=== PATIENT | female | born 1985 | race Hispanic/Latino ===

== ENCOUNTER 2024-03-09 13:57 | Emergency (ER) | payer OTHER, SELFPAY ==
[2024-03-09] MEDS ORDERED: NA CHLORIDE 0.9% 1,000 ML ONE (15:14)
[2024-03-09] MEDS ORDERED: MORPHINE 2 MG/ML SYR ONE (15:14)
[2024-03-09 15:20] LABS: Absolute Eosinophils 0.2 K/uL (0-0.5); Absolute Lymphocytes (CBC) 1.6 K/uL (0.7-4.9); Absolute Monocytes 0.5 K/uL (0.1-1.3); Absolute Neutrophil 2.5 K/uL (1.8-8.0); Basophils % 0.5 % (0-1.3); Eosinophils % 3.3 % (0-4.4); Lymphocytes % 33.9 % (15.3-44.8); MCHC 32.5 g/dL (32.0-36.0); MCV 79.9 fL (80-100); MPV 7.5 fL (7.6-11.3); Monocytes % 9.6 % (3.3-12.3); Neutrophils % 52.7 % (41.7-73.7); Nucleated Red Blood Cells % 0.3 % (0-0); Platelets 325 thou/uL (152-406); RBC Red Blood Cell Count 4.63 M/uL (3.86-4.86); Red Cell Distribution Width 14.4 % (12.1-15.2)
[2024-03-09 15:25] LABS: PT Prothrombin Time 11.1 SECONDS (9.4-12.5); PTT, Activated Partial Thromb 34.7 SECONDS (24.3-36.9); Protime INR 0.99
[2024-03-09 15:53] LABS: Anion Gap 6.1 mEq/L (5.0-15.0); Potassium 4.1 mEq/L (3.5-5.1)
[2024-03-09] MEDS ORDERED: dexAMETHasone 10 MG/ML VIAL ONE (16:10)
--- NOTE | 2024-03-09 16:22 | RAD REPORT ---
EXAM: CT Head Brain Wo Cont HISTORY: headache, dizziness, right facial palsy COMPARISON: 10/20/2013 TECHNIQUE: Multiple contiguous axial images were obtained for a CT of the brain without contrast. Sag ittal and coronal reformats were performed. One or more of the following dose reduction techniques were used: Automated exposure control, adjus tment of the mA and kV according to patient size, and iterative reconstruction. Unless otherwise specified, incidental findings do not require dedicated imaging follow-up. FINDINGS: No evidence of hydrocephalus, intracranial hemorrhage, or extra-axial fluid collection. The brain is normal in morphology. The calvarium is intact. The visualized paranasal sinuses and mastoid air cells are essentially clear . IMPRESSION: No evidence of acute intracranial abnormality.
--- NOTE | 2024-03-09 16:36 | RAD REPORT ---
EXAMINATION: CTA HEAD CLINICAL INDICATION: Female, 38 years old. Dizziness;Wilkins's Palsy TECHNIQUE: Axial CT images were obtained through the head after intravenous contrast utilizing angiog raphic protocol with 3D post-processing (maximum intensity projection images, volume rendered images and/or shaded surface rendered images). One or more of the following dose reduction technique s were used: Automated exposure control, adjustment of the mA and/or kV according to patient size, and/or iterative reconstruction. Unless otherwise specified, incidental findings do not require dedic ated imaging follow-up. COMPARISON: No prior exam. FINDINGS: ICA: The petrous, cavernous, and supraclinoid segments of the bilateral internal carotid arteries are normal. CLAUDETTE: Anterior cerebral arteries are normal bilaterally. The anterior communicating artery is patent. MCA: Middle cerebral arteries are normal bilaterally. SQUEEGEE OPERATOR: Posterior cerebral arteries are normal bilaterally. Vertebrobasilar: The vertebral arteries are patent. The basilar artery is normal in appearance. 3D images confirm these findings. IMPRESSION: No evidence of large vessel occlusion or hemodynamically significant stenosis.
--- NOTE | 2024-03-09 16:38 | RAD REPORT ---
EXAMINATION: CT Neck Angio CLINICAL INDICATION: Female, 38 years old. [facility] right facial palsy Bed: TECHNIQUE: Axial CT images were obtained from the aortic arch to the skull base after intravenous con trast utilizing angiographic protocol. Multiplanar reformats, as well as 3D post-processing (maximum intensity projection images, volume rendered images and/or shaded surface rendered images) w ere generated and reviewed. One or more of the following dose reduction techniques were used: Automated exposure control, adjustment of the mA and/or kV according to patient size, and/or iterativ e reconstruction. Unless otherwise specified, incidental findings do not require dedicated imaging follow-up. COMPARISON: No prior exam. FINDINGS: AORTA: The imaged aortic arch is normal. Variant anatomy of the arch with common origin of the left C CA and innominate artery. CCA: No artifact The common carotid arteries are patent and normal in caliber. ICA/ECA: Bilateral internal and external carotid arteries are patent. There is no significant interna l carotid artery stenosis. VERTEBRAL: The cervical vertebral arteries are patent to the skull base. Vertebral arteries are codom inant. SOFT TISSUE: No significant neck soft tissue abnormalities. The visualized lung apices are clear. 3D images confirm these findings. IMPRESSION: No significant flow abnormality of the neck vessels is identified. NASCET criteria used to quantify ICA stenosis, with the following grading scheme: Mild 0-49% stenosis Moderate 50-69% stenosis Severe 70-99% stenosis Reference: [place] Symptomatic Carotid Endarterectomy Trial Collaborators; Juan MONDRAGON, Freda HAWTHORNE, Katelyn RB, et al. Beneficial effect of carotid endarterectomy in symptomatic patients with high-grade carotid stenosis. N Engl J Med. 1990Nov 06;325(7):445-53.
[2024-03-09] MEDS ORDERED: KETOROLAC 30 MG/ML INJ ONE (17:36)
--- NOTE | 2024-03-09 17:57 | EDPHYS ---
Physician Documentation [facility] Name: Chikis Baker Age: 38 yrs Sex: Female : 1985 Arrival Date: 03/09/2024 Time: 13:57 Bed 23 Private MD: ED Physician Jonny Garcia HPI: 03/09 14:51 This 38 yrs old Female presents to ER via Ambulatory with complaints of rn Headache. 14:51 The patient complains of pain to the forehead. Onset: The symptoms/episode rn began/occurred 5 day(s) ago. Severity of symptoms: At its worst the pain was moderate, in the emergency department the pain is unchanged. The patient has not experienced similar symptoms in the past. Patient reports 5 days of headache, associated with intermittent dizziness and feeling lightheaded. Last night noticed right side of face was not moving with normal strength, involves upper and lower face. No trauma. No family history of brain tumor or aneurysm. No focal neurological deficits otherwise. Denies fever or chills.. 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 - Infectious Disease History:: Denies. - Social history:: Smoking status: Patient denies any tobacco usage or history of. - Family history:: not pertinent. - Hospitalizations: : No recent hospitalization is reported. ROS: 14:51 Constitutional: Negative for fever, chills, and weight loss, Eyes: Negative for injury, rn pain, redness, and discharge, Neck: Negative for injury, pain, and swelling, Cardiovascular: Negative for chest pain, palpitations, and edema, Respiratory: Negative for shortness of breath, cough, wheezing, and pleuritic chest pain, Abdomen/GI: Negative for abdominal pain, nausea, vomiting, diarrhea, and constipation, Back: Negative for injury and pain, MS/Extremity: Negative for injury and deformity, Skin: Negative for injury, rash, and discoloration, Neuro: Positive for headache and dizziness Exam: 14:51 Constitutional: This is a well developed, well nourished patient who is awake, alert, rn and in no acute distress. Head/Face: Normocephalic, atraumatic. Right upper and lower facial palsy Eyes: Pupils equal round and reactive to light, extra-ocular motions intact. Neck: No meningismus. Cardiovascular: Regular rate and rhythm. No pulse deficits. Respiratory: No increased work of breathing, no retractions or nasal flaring. Abdomen/GI: Soft, non-tender MS/ Extremity: Pulses equal, no cyanosis. Neurovascular intact. Full, normal range of motion. Equal circumference. Neuro: Awake and alert, GCS 15, oriented to person, place, time, and situation. Right upper and lower facial palsy. Motor strength 5/5 in all extremities. Sensory grossly intact. Cerebellar exam normal. Normal gait. Vital Signs: 14:39 BP 126 / 84; Pulse 90; Resp 16; Temp 98.5(O); Pulse Ox 97% ; Weight 83.91 kg; Height 5 cm10 ft. 2 in. ; Pain 10/10; 15:19 BP 117 / 70; Pulse 72; Resp 16; Pulse Ox 100% on R/A; jb4 16:32 BP 101 / 65; Pulse 66; Resp 16; Pulse Ox 100% on R/A; jb4 14:39 Body Mass Index 33.84 (83.91 kg, 157.48 cm) cm10 14:39 Pain Scale: Adult cm10 [place] Coma Score: 17:55 Eye Response: spontaneous(4). Motor Response: obeys commands(6). Verbal Response: rn oriented(5). Total: 15. MDM: 14:10 Medical Screening Exam initiated rn 17:55 Differential diagnosis: intracerebral hemorrhage, tension headache, trigeminal rn neuralgia, vasomotor headache, Wilkins's palsy, Leila Oliveira syndrome. Data reviewed: vital signs, nurses notes, lab test result(s), radiologic studies, CT scan, and as a result, I will discharge patient. ED course: No acute findings and imaging. Specifically no brain tumor mass or vertebral artery dissection. Patient with unilateral Wilkins's palsy and facial pain. Will discharge home with steroids/antivirals/gabapentin and neurological follow-up. Return precautions given and understood.. 03/09 14:42 Order name: CBC with Diff; Complete Time: 15:56 rn 03/09 14:42 Order name: Basic Metabolic Panel; Complete Time: 15:56 rn 03/09 14:42 Order name: Protime (+inr); Complete Time: 15:56 rn 03/09 14:42 Order name: Ptt, Activated; Complete Time: 15:56 rn 03/09 14:41 Order name: CT Head Brain wo Cont; Complete Time: 16:24 rn 03/09 14:41 Order name: Head Angio CT; Complete Time: 17:29 rn 03/09 14:41 Order name: Neck Angio CT; Complete Time: 17:29 rn 03/09 14:42 Order name: IV Start; Complete Time: 15:12 rn Administered Medications: 14:42 CANCELLED (Duplicate Order): Decadron - [id number] mg IVP once rn 15:18 Drug: morphine IVP or IV 2 mg IVP once over 4 mins Route: IVP; Infused Over: 4 mins; jb4 Site: right antecubital; 15:45 Follow up: Response: No adverse reaction; Marked relief of symptoms; Pain is decreased jb4 15:18 Drug: NS 0.9% IV 1000 ml IV at 1000 ml once; to be given as a bolus over 60 minutes jb4 Route: IV; Rate: 1000 ml; Site: right antecubital; 16:18 Follow up: Response: No adverse reaction; IV Status: Completed infusion; IV Intake: jb4 1000ml 16:15 Drug: Decadron - Dexamethasone IVP 10 mg IVP once Route: IVP; Site: right antecubital; jb4 17:41 Follow up: Response: No adverse reaction jb4 17:41 Drug: Ketorolac IVP 30 mg IVP once Route: IVP; Site: right antecubital; jb4 18:15 Follow up: Response: No adverse reaction; No change in condition; Pain is unchanged, jb4 physician notified 18:15 Drug: Acetaminophen PO 1000 mg PO once Route: PO; jb4 18:15 Follow up: Response: Medication administered at discharge. jb4 Disposition Summary: 03/09/24 17:57 Discharge Ordered Notes: Location: Home rn Problem: new rn Symptoms: have improved rn Condition: Stable rn Diagnosis - Wilkins's palsy rn - Headache rn Followup: rn - With: Private Physician - When: As needed - Reason: Recheck today's complaints, Re-evaluation by your physician Discharge Instructions: - Discharge Summary Sheet rn - Wilkins's Palsy, Adult rn - Migraine Headache rn Forms: - Medication Reconciliation Form rn - Antibiotic senior international tax manager - Prescription Opioid Use rn - Patient Portal Instructions rn - Leadership Thank You Letter rn Prescriptions: - gabapentin 100 mg Oral capsule - take 1 capsule ORAL route every 12 hours As needed; 20 capsule; Refills: 0, rn Product Selection Permitted - Acyclovir 800 mg Oral Tablet - take 1 tablet ORAL route 5 times per day for 10 days; 50 tablet; Refills: 0, rn Product Selection Permitted - Medrol (Butch) 4 mg Oral Tablets, Dose Pack - take 1 tablet ORAL route as directed - follow package instructions; 1 packet; rn Refills: 0, Product Selection Permitted Signatures: Dispatcher [employer] EDMS Jonny Garcia MD MD rn Bryson, James RN RN jb4 Nicole Cloud RN RN cm10 Corrections: (The following items were deleted from the chart) 14:41 14:41 Head Brain Wo Cont+CT.RAD.BRZ ordered. EDMS EDMS 14:41 14:41 Head Angio+CT.RAD.BRZ ordered. EDMS EDMS 14:41 14:41 Neck Angio+CT.RAD.BRZ ordered. EDMS EDMS 14:42 14:42 Decadron - Dexamethasone IVP 10 mg IVP once ordered. rn rn 14:43 14:42 CBC+H.LAB.BRZ ordered. EDMS EDMS 14:43 14:42 BASIC METABOLIC PANEL+C.LAB.BRZ ordered. EDMS EDMS 14:43 14:42 PROTIME (+INR)+COAG.LAB.BRZ ordered. EDMS EDMS 14:43 14:42 PTT, ACTIVATED+COAG.LAB.BRZ ordered. EDMS EDMS 14:43 14:42 Test, Urine+UC.LAB.BRZ ordered. EDMS EDMS
--- NOTE | 2024-03-09 17:57 | ER ---
Nurse's Notes [facility] Name: Chikis Baker Age: 38 yrs Sex: Female : 1985 Arrival Date: 03/09/2024 Time: 13:57 Bed 23 Private MD: Diagnosis: Wilkins's palsy;Headache Presentation: 03/09 14:39 Chief complaint: Patient states: HEADACHE X5 DAYS. PT ALSO REPORTS DIZZINESS. PT HAS cm10 RIGHT SIDED FACIAL DROOP. Coronavirus screen: Client denies travel out of the [place] in the last 14 days. Ebola Screen: Patient denies travel to an Ebola-affected area in the 21 days before illness onset. Initial Sepsis Screen: Does the patient meet any 2 criteria? No. Patient's initial sepsis screen is negative. Does the patient have a suspected source of infection? No. Patient's initial sepsis screen is negative. Risk Assessment: Do you want to hurt yourself or someone else? Patient reports no desire to harm self or others. Onset of symptoms was March 09, 2024. 14:39 Method Of Arrival: Ambulatory 10 14:39 Acuity: EMELIA 3 cm10 Triage Assessment: 14:42 General: Appears in no apparent distress. comfortable, Behavior is calm, cooperative. cm10 Neuro: No deficits noted. Level of Consciousness is awake, alert, obeys commands, Oriented to person, place, time, situation, Appropriate for age. Respiratory: No deficits noted. Airway is patent Respiratory effort is even, unlabored, Respiratory pattern is regular, symmetrical. 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 - Infectious Disease History:: Denies. - Social history:: Smoking status: Patient denies any tobacco usage or history of. - Family history:: not pertinent. - Hospitalizations: : No recent hospitalization is reported. Screenin:[facility] ED Fall Risk Assessment (Adult) History of falling in the last 3 months, jb4 including since admission No falls in past 3 months (0 pts) Confusion or Disorientation No (0 pts) Intoxicated or Sedated No (0 pts) Impaired Gait No (0 pts) Mobility Assist Device Used No (0 pt) Altered Elimination No (0 pt) Score/Fall Risk Level 0 - 2 = Low Risk Oriented to surroundings, Maintained a safe environment. Abuse screen: Denies threats or abuse. Nutritional screening: No deficits noted. Tuberculosis screening: No symptoms or risk factors identified. Assessment: 15:19 General: Appears in no apparent distress. uncomfortable, Behavior is calm, cooperative. jb4 Pain: Complains of pain in right base of the skull Pain does not radiate. Pain currently is 10 out of 10 on a pain scale. Neuro: Level of Consciousness is awake, alert, obeys commands, Oriented to person, place, time, situation. Cardiovascular: Patient's skin is warm and dry. Respiratory: Airway is patent Respiratory effort is even, unlabored, Respiratory pattern is regular, symmetrical. Derm: Skin is intact, Skin is pink, warm \T\ dry. Musculoskeletal: Circulation, motion, and sensation intact. Range of motion: intact in all extremities. 16:32 Reassessment: Patient appears in no apparent distress at this time. Patient and/or jb4 family updated on plan of care and expected duration. Pain level reassessed. Patient is alert, oriented x 3, equal unlabored respirations, skin warm/dry/pink. 18:16 Reassessment: Patient appears in no apparent distress at this time. Patient and/or jb4 family updated on plan of care and expected duration. Pain level reassessed. Patient is alert, oriented x 3, equal unlabored respirations, skin warm/dry/pink. Vital Signs: 14:39 BP 126 / 84; Pulse 90; Resp 16; Temp 98.5(O); Pulse Ox 97% ; Weight 83.91 kg; Height 5 cm10 ft. 2 in. ; Pain 10/10; 15:19 BP 117 / 70; Pulse 72; Resp 16; Pulse Ox 100% on R/A; jb4 16:32 BP 101 / 65; Pulse 66; Resp 16; Pulse Ox 100% on R/A; jb4 14:39 Body Mass Index 33.84 (83.91 kg, 157.48 cm) cm10 14:39 Pain Scale: Adult cm10 [place] Coma Score: 17:55 Eye Response: spontaneous(4). Motor Response: obeys commands(6). Verbal Response: rn oriented(5). Total: 15. ED Course: 14:09 Patient arrived in ED. al6 14:10 Jonny Garcia MD is Attending Physician. rn 14:41 Triage completed. cm10 14:42 Arm band placed on right wrist. Patient placed in waiting room. cm10 15:06 CT completed. Patient tolerated procedure well. Note: 20 g to rt ac by janet in ct, sj labs collected and sent. Patient moved to CT via wheelchair. Patient taken to [facility]. 15:11 CT Head Brain wo Cont In Process Unspecified. EDMS 15:[address] In Process Unspecified. EDMS 15:[address] In Process Unspecified. EDMS 15:12 Vel Sawyer, RN is Primary Nurse. jb4 15:19 Patient has correct armband on for positive identification. Bed in low position. Call jb4 light in reach. Side rails up X 1. Provided Education on: plan of care. 18:16 No provider procedures requiring assistance completed. IV discontinued, intact, jb4 bleeding controlled, No redness/swelling at site. Pressure dressing applied. Administered Medications: 14:42 CANCELLED (Duplicate Order): Decadron - [id number] mg IVP once rn 15:18 Drug: morphine IVP or IV 2 mg IVP once over 4 mins Route: IVP; Infused Over: 4 mins; jb4 Site: right antecubital; 15:45 Follow up: Response: No adverse reaction; Marked relief of symptoms; Pain is decreased jb4 15:18 Drug: NS 0.9% IV 1000 ml IV at 1000 ml once; to be given as a bolus over 60 minutes jb4 Route: IV; Rate: 1000 ml; Site: right antecubital; 16:18 Follow up: Response: No adverse reaction; IV Status: Completed infusion; IV Intake: jb4 1000ml 16:15 Drug: Decadron - Dexamethasone IVP 10 mg IVP once Route: IVP; Site: right antecubital; jb4 17:41 Follow up: Response: No adverse reaction jb4 17:41 Drug: Ketorolac IVP 30 mg IVP once Route: IVP; Site: right antecubital; jb4 18:15 Follow up: Response: No adverse reaction; No change in condition; Pain is unchanged, jb4 physician notified 18:15 Drug: Acetaminophen PO 1000 mg PO once Route: PO; jb4 18:15 Follow up: Response: Medication administered at discharge. jb4 Medication: 15:19 VIS not applicable for this client. jb4 Intake: 16:18 IV: 1000ml; Total: 1000ml. jb4 Outcome: 17:57 Discharge ordered by . rn 18:16 Discharged to home ambulatory, jb4 18:16 Condition: stable 18:16 Discharge instructions given to patient, Instructed on discharge instructions, follow up and referral plans. medication usage, Demonstrated understanding of instructions, follow-up care, medications, Prescriptions given X 3, 18:16 Patient left the ED. jb4 Signatures: Dispatcher [employer] EDMS Janet Renee Roman, MD MD rn Bryson, James, RN RN jb4 Nicole Cloud RN RN cm10 Trudy [email or web address]
[2024-03-09] MEDS ORDERED: ACETAMINOPHEN 500 MG TAB ONE (18:08)
[2024-03-09 19:16] VITALS: TEMP 98.5
[2024-03-09 19:17] VITALS: O2SAT 100
[2024-03-09 19:18] VITALS: BP 101/65
== END 2024-03-09 18:16 | disposition home or self-care (01) ==
LOC: ER 13:57 → ERHOLD 03-10 17:20 → UNDOADMIN 03-10 17:20 → UNDODISIN 03-10 18:19
DX: G51.0 Bell's palsy (principal)
CPT/HCPCS: 36415; 70450; 70496; 70498; 80048; 85025; 85610; 85730; 96361; 96374; 96375; 99284; J1100; J2270; J7030; Q9967